=== PATIENT | female | born 1970 | race American Indian/Alaskan Native ===

== ENCOUNTER 2021-01-01 22:01 | Emergency (ER) | payer OTHER ==
[2021-01-01] MEDS ORDERED: ASPIRIN 325 MG TAB PO ONE (23:38)
--- NOTE | 2021-01-01 23:59 | XRay Report ---
CHEST 2 VIEWS INDICATION: chest pain. COMPARISON: None FINDINGS: SUPPORT DEVICES: None. HEART: Within normal limits. LUNGS/PLEURA: No acute air space or interstitial disease. No pneumothorax. ADDITIONAL FINDINGS: None. IMPRESSION: 1. No acute findings. Signer Name: Joseph Mantilla MD Signed: 01/01/2021 11:55 PM Workstation Name: [id number]
[2021-01-02 01:07] LABS: Basophils # (Auto) 0.1 K/mm3 (0.0-0.1); Eosinophils # (Auto) 0.3 K/mm3 (0.0-0.4); Eosinophils % (Auto) 3.2 % (0.0-4.3); Hematocrit 37.8 % (30.3-42.9); Hemoglobin 13.2 gm/dl (10.1-14.3); Lymphocytes # (Auto) 3.1 K/mm3 (1.2-5.4); Lymphocytes % (Auto) 37.9 % (13.4-35.0); Mean Corpuscular HGB Conc 35 % (30-34); Mean Corpuscular Volume 95 fl (79-97); Monocytes # (Auto) 0.6 K/mm3 (0.0-0.8); Monocytes % (Auto) 7.6 % (0.0-7.3); Platelet Count 255 K/mm3 (140-440); Red Cell Distribution Width 15.4 % (13.2-15.2)
[2021-01-02 01:31] LABS: Alanine Aminotransferase 35 units/L (7-56); Albumin 4.7 g/dL (3.9-5); BUN/Creatinine Ratio 19; Blood Urea Nitrogen 17 mg/dL (7-17); Hemolysis Index 9
[2021-01-02 09:57] VITALS: BP 178/98
--- NOTE | 2021-01-03 09:15 | Electrocardiograph Report ---
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
== END 2021-01-02 12:53 | disposition left against medical advice (07) ==
LOC: ED 22:01
DX: M54.9 Dorsalgia, unspecified (principal); Z53.21 Procedure and treatment not carried out due to patient leaving prior to being seen by health care provider
CPT/HCPCS: 36415; 71046; 80053; 84484; 85025; 93005